=== PATIENT | female | born 1990 | race Caucasian/White ===

== ENCOUNTER → 2019-08-07 | Outpatient (REF) | payer OTHER ==
[2019-08-07 13:32] LABS: RHEUMATOID FACTOR QUANT < 10.0 IU/ML (<15.0)
[2019-08-07 13:39] LABS: TOTAL 25(OH) VITAMIN D 28.5 NG/ML (30.0-100.0)
[2019-08-09 17:13] LABS: ANTINUCLEAR ANTIBODIES DIRECT Negative (Negative); LEVETIRACETAM (KEPPRA) 16.6 ug/mL (10.0-40.0)
== END ==
LOC: M LAB REF 12:13
PROVIDERS: ATTEND Internal Medicine
DX: R56.9 Unspecified convulsions (principal)

== ENCOUNTER → 2020-03-09 | Outpatient (REF) | payer OTHER | LOC: M LAB REF 12:31 | PROVIDERS: ATTEND Registered Nurse | DX: R56.9 Unspecified convulsions (principal) ==

== ENCOUNTER → 2021-03-17 | Outpatient (REF) | payer OTHER | LOC: M LAB REF 11:24 | PROVIDERS: ATTEND Nurse Practitioner Adult Health | DX: R56.9 Unspecified convulsions (principal) ==

== ENCOUNTER → 2021-05-25 | Outpatient (REF) | payer OTHER | LOC: M LAB REF 16:33 | PROVIDERS: ATTEND Nurse Practitioner Adult Health | DX: N92.1 Excessive and frequent menstruation with irregular cycle (principal) ==

== ENCOUNTER → 2021-06-07 | Outpatient (CLI) | payer OTHER ==
--- NOTE | 2021-06-07 09:47 | REP ---
INDICATION: CHANGES IN CYCLE. COMPARISON: None. TECHNIQUE: Transabdominal and transvaginal scanning performed. FINDINGS: Uterine dimensions are 8.9 x 4.2 x 6.0 cm. Endometrial echo is 11 mm in AP dimension and centrally placed. There appears to be a fundal fibroid measuring 0.9 x 1.1 x 1.2 cm. The bladder measures 12.7 x 10.3 x 7.1cm. The right ovary has dimensions of 3.4 x 1.7 x 2.4 cm. It's Doppler flow is normal with a resistive index of 0.55. The left ovary dimensions are 2.4 x 2.0 x 1.9 cm. It's Doppler flow was normal with resistive index of 0.63. A dominant follicle in the right ovary measures 2.3 cm in diameter. There is no other evidence of adnexal mass. No free fluid is seen in the cul-de-sac. IMPRESSION: A fundal fibroid measures 1.2 cm. The endometrial thickness is 11 mm. A dominant follicle of the right ovary measured 2.3 cm. Otherwise negative pelvic ultrasound. <Electronically signed by Lucio Holliday > 06/07/21 [id number]
== END ==
LOC: M RAD 08:42
PROVIDERS: ATTEND Obstetrics & Gynecology
DX: N92.1 Excessive and frequent menstruation with irregular cycle (principal)

== ENCOUNTER → 2021-08-01 | Outpatient (CLI) | payer OTHER ==
[~2021-08-01] MED LIST: ALBU8.5H INH; ALBU83IN INH; D3 H10002 PO; LEVE250T5 PO; LEVE500T5 PO; LEVO-53 PO; VITA-243 PO; [UNRECOGNIZED DRUG - OTHER] PO
== END ==
LOC: M LABSMTC 11:03
PROVIDERS: ATTEND Anesthesiology
DX: Z01.812 Encounter for preprocedural laboratory examination (principal); Z20.822 Contact with and (suspected) exposure to COVID-19

== ENCOUNTER 2021-08-05 09:32 | Day surgery (SDC) | payer OTHER ==
[~2021-08-05] VITALS: Ht 149.9 cm; Wt 66.6 kg
[~2021-08-05 09:32] MED LIST changes: +LR 1,000 ML IV ONE
[2021-08-05] MEDS ORDERED: LIDOCAINE W/EPINEPHRINE 1% 20ML VIAL As Ordered ONE (10:01)
[2021-08-05] MEDS ORDERED: MIDAZOLAM INJ 2MG/2ML VIAL (J2250 PER 1MG) As Ordered ONE (12:20)
[2021-08-05] MEDS ORDERED: fentaNYL 100 MCG/2 ML INJECTION As Ordered ONE (12:20)
[2021-08-05] MEDS ORDERED: propofoL 200 MG/20 ML VIAL As Ordered ONE (12:22)
[2021-08-05] MEDS ORDERED: LIDOCAINE 2% 100MG/5ML SDV (FOR ANES.) As Ordered ONE (12:23)
[2021-08-05] MEDS ORDERED: ROCURONIUM BROMIDE 50 MG/5 ML VIAL As Ordered ONE (12:23)
[2021-08-05] MEDS ORDERED: dexameTHASONE 4 MG/ML 1ML VIAL (J1100 PER 1MG) As Ordered ONE (12:23)
[2021-08-05] MEDS ORDERED: ONDANSETRON 4MG/2ML VIAL As Ordered ONE (12:23)
[2021-08-05] MEDS ORDERED: ACETAMINOPHEN 1000MG 100ML IV BTL (OFIRMEV) (J0131 PER 10MG) As Ordered ONE (13:17)
[2021-08-05] MEDS ORDERED: SUGAMMADEX SODIUM 500 MG/5 ML VIAL (BRIDION) As Ordered ONE (13:30)
[2021-08-05] MEDS ORDERED: ONDANSETRON 4MG/2ML VIAL IV PRN (13:50)
[2021-08-05] MEDS ORDERED: fentaNYL 100 MCG/2 ML INJECTION IV PRN (13:50)
[2021-08-05] MEDS ORDERED: LR 1,000 ML IV SCH ×2 (13:50→13:55)
[2021-08-05] MEDS ORDERED: oxyCODONE 5MG TAB PO PRN (13:50)
[2021-08-05 14:30] VITALS: BP 144/88
== END 2021-08-05 15:05 | disposition home or self-care (01) ==
LOC: M SDC 09:32
PROVIDERS: ATTEND Dentist Oral and Maxillofacial Surgery
DX: K01.1 Impacted teeth (principal); K02.9 Dental caries, unspecified; G40.909 Epilepsy, unspecified, not intractable, without status epilepticus; J45.909 Unspecified asthma, uncomplicated; Z79.51 Long term (current) use of inhaled steroids; Z79.899 Other long term (current) drug therapy; Z88.7 Allergy status to serum and vaccine; Z88.0 Allergy status to penicillin
CPT/HCPCS: 81025; 88300; D7210; D9223; J0131; J1100; J2250; J2405; J3010

== ENCOUNTER → 2022-03-21 | Outpatient (REF) | payer OTHER ==
[~2022-03-21] MED LIST changes: +ALBU2.5V10 INH; -ALBU83IN INH; -LR 1,000 ML IV ONE
== END ==
LOC: M LAB REF 11:30
PROVIDERS: ATTEND Nurse Practitioner Adult Health
DX: R56.9 Unspecified convulsions (principal)

== ENCOUNTER → 2022-10-11 | Outpatient (REF) | payer OTHER | LOC: M PLALAB 16:19 | PROVIDERS: ATTEND Nurse Practitioner Family | DX: Z12.4 Encounter for screening for malignant neoplasm of cervix (principal); R87.618 Other abnormal cytological findings on specimens from cervix uteri | CPT/HCPCS: 87624; G0123 ==

== ENCOUNTER → 2023-04-03 | Outpatient (CLI) | payer OTHER ==
[2023-04-03 15:50] LABS: BASO # 0.1 10^3/uL (0.0-0.2); BASO % 0.4 % (0.0-1.0); EOS # 0.6 10^3/uL (0.0-0.5); EOS % 4.6 % (0.0-3.0); HEMATOCRIT 39.9 % (36.0-47.0); HEMOGLOBIN 13.2 g/dl (12.0-15.5); LYMPH # 4.2 10^3/uL (1.5-5.0); LYMPH % 33.3 % (24.0-44.0); MEAN CORPUSCULAR HEMOGLOBIN 28.3 pg (27.0-33.0); MEAN CORPUSCULAR HGB CONC 33.1 g/dl (32.0-36.5); MEAN CORPUSCULAR VOLUME 85.4 fl (80.0-96.0); MONO # 1.3 10^3/uL (0.0-0.8); MONO % 10.6 % (2.0-8.0); NEUTROPHILS # 6.5 10^3/uL (1.5-8.5); NEUTROPHILS % 50.7 % (36.0-66.0); PLATELET COUNT, AUTOMATED 375 10^3/uL (150-450); RED BLOOD COUNT 4.67 10^6/uL (4.00-5.40); WHITE BLOOD COUNT 12.7 10^3/uL (4.0-10.0)
[2023-04-03 16:26] LABS: FREE T4 1.04 NG/DL (0.89-1.76); THYROID STIMULATING HORMONE 1.889 uIU/ML (0.55-4.78)
== END ==
LOC: M PLALAB 14:26
PROVIDERS: ATTEND Nurse Practitioner Family
DX: N93.9 Abnormal uterine and vaginal bleeding, unspecified (principal)

== ENCOUNTER → 2023-04-11 | Outpatient (CLI) | payer OTHER | LOC: M WHC 10:39 | PROVIDERS: ATTEND Nurse Practitioner Family | DX: N93.9 Abnormal uterine and vaginal bleeding, unspecified (principal) ==

== ENCOUNTER → 2024-06-05 | Outpatient (REF) | payer OTHER ==
[2024-06-07 13:33] LABS: HPV APTIMA Not Detected (Not Detected)
== END ==
LOC: M SFHCWAGY 13:20
PROVIDERS: ATTEND Nurse Practitioner Family
DX: R87.615 Unsatisfactory cytologic smear of cervix (principal)

== ENCOUNTER 2024-11-16 12:44 | Emergency (ER) | payer OTHER ==
[~2024-11-16] VITALS: Ht 149.9 cm; Wt 87.3 kg
[2024-11-16] MEDS ORDERED: walking boot TOP (14:28)
[2024-11-16 14:49] VITALS: BP 141/87; TEMP 97.9; O2SAT 96
== END 2024-11-16 14:51 | disposition home or self-care (01) ==
LOC: M ED 12:44
DX: S93.401A Sprain of unspecified ligament of right ankle, initial encounter (principal); W01.0XXA Fall on same level from slipping, tripping and stumbling without subsequent striking against object, initial encounter; Y92.009 Unspecified place in unspecified non-institutional (private) residence as the place of occurrence of the external cause; Y93.89 Activity, other specified; Y99.9 Unspecified external cause status; R56.9 Unspecified convulsions; Z88.1 Allergy status to other antibiotic agents; Z88.7 Allergy status to serum and vaccine

== ENCOUNTER → 2025-06-04 | Outpatient (REF) | payer OTHER ==
[~2025-06-04] MED LIST changes: +walking boot TOP
[2025-06-04 16:38] LABS: HCG, SERUM QUALITATIVE NEGATIVE (NEGATIVE)
== END ==
LOC: M LAB REF 15:11
PROVIDERS: ATTEND Nurse Practitioner Adult Health
DX: N91.2 Amenorrhea, unspecified (principal)

== ENCOUNTER → 2025-06-04 | Outpatient (CLI) | payer OTHER ==
[~2025-06-04] MED LIST changes: +ISOVUE-370 76% 100 ML VIAL ONE
== END ==
LOC: M PLAIMG 12:33
PROVIDERS: ATTEND Nurse Practitioner Adult Health
DX: R10.32 Left lower quadrant pain (principal); N83.291 Other ovarian cyst, right side; N91.2 Amenorrhea, unspecified
CPT/HCPCS: 74177; 84703; Q9967

== ENCOUNTER → 2025-06-09 | Outpatient (REF) | payer OTHER ==
[~2025-06-09] MED LIST changes: -ISOVUE-370 76% 100 ML VIAL ONE
[2025-06-11 15:07] LABS: HPV APTIMA Detected (Not Detected)
== END ==
LOC: M SFHCWAGY 13:10
PROVIDERS: ATTEND Nurse Practitioner Family
DX: Z12.4 Encounter for screening for malignant neoplasm of cervix (principal); R87.615 Unsatisfactory cytologic smear of cervix

== ENCOUNTER → 2025-07-13 | Outpatient (CLI) | payer OTHER | LOC: M WHC 06:48 | PROVIDERS: ATTEND Nurse Practitioner Family | DX: N83.202 Unspecified ovarian cyst, left side (principal) ==